=== PATIENT | female | born 1990 | race Caucasian/White ===

== ENCOUNTER 2017-02-26 05:21 | Inpatient (IN) | payer MEDICAID, OTHER ==
--- NOTE | 2017-02-19 11:59 | NUR ---
Social Pt. and mother came to to sign papers pre-delivery. Displayed openly hostile attitude upon arrival. During the signing of papers, pt. related numerous dislikes she has against doctors at [facility], and complaints about her past labors and deliveries at [facility]. These included: dislike of past delivering physician, c/o having to stay 5 days after 1st delivery because she was considered to have problems "bonding with my baby", being moved to a different room 3 different times during stay, given Lortab during labor, and then "my baby's screen came back showing Lortab in it", nurses coming into the room to "check my BP every 15 min just as an excuse to check on me and see how I was bonding with the baby", couldn't get any sleep for 5 days. When asked about who they wanted to follow up with for baby doctor, mother answered, "she doesn't like any of the doctors here; we will follow up elsewhere." Later when talking about a circumcision for baby, pt was told the circumcision would be done with her follow up doctor. Mother said, "well then we will lie and say we're following up with Tete." Pt. states, "I am not having the circumcision done at another doctor." Mother looked at daughter and said, "remember to lie about that when they ask you about your baby doctor."
[~2017-02-26] VITALS: Ht 160 cm; Wt 92.7 kg
[~2017-02-26 05:21] MED LIST: PREN1TAB53 PO
[2017-02-26] MEDS ORDERED: LIDOCAINE 1% (10mg/ml) 2ml SDV ID PRN (05:45)
[2017-02-26] MEDS ORDERED: MAG-AL + SIM LIQUID 30 ML UDC PO PRN ×2 (05:45→09:15)
[2017-02-26] MEDS ORDERED: ACETAMINOPHEN 500 MG TABLET PO PRN ×2 (05:45→09:15)
[2017-02-26] MEDS ORDERED: CALCIUM CARBONATE 500mg Chewable TAB PO PRN ×2 (05:45→09:15)
[2017-02-26] MEDS: LR 1,000 ML IV PRN ×2 (05:49→06:54)
--- NOTE | 2017-02-26 05:59 | ANESOB ---
Epidural/ Date/Time DATE: 02/26/17 TIME: 05:57 Preop Diagnosis Procedure: Labor Epidural Plan: Epidural Height: 5 ' 3.00 " Weight: kg BMI: kg/m2 NPO since: mn P:2 Heart Rate: 130 Medications & Allergies Inpatient Medications Current Medications Medications (Trade) Dose Ordered Sig/Kuldeep Start Time Stop Time Status Last Admin Dose Admin Lidocaine HCl 0.2 mg 0.2 mg PRN PRN 02/26/17 05:45 UNV Lactated Ringer's (Lactated Ringers) 1,000 ml @ 0 mls/hr Q0M PRN 02/26/17 05:32 UNV 02/26/17 05:49 500 MLS/HR Acetaminophen (Tylenol Extra Strength) 1-2 TABS = 500-1,000 MG Q4H PRN 02/26/17 05:45 UNV Al Hydroxide/Mg Hydroxide (Maalox) 30 ml Q4H PRN 02/26/17 05:45 UNV Calcium Carbonate (TUMS Regular Strength) 1-2 TABS Q2H PRN 02/26/17 05:45 UNV Vits W-Ca,Fe,Fa(<1MG) () 1 Tab Tablet, 1 TAB PO DAILY, ( Reported) Coded Allergies: Iodine (Verified Allergy, Severe, BLISTERING, 11/23/11) Penicillins (Verified Allergy, Unknown, 11/23/11) Medical/Surgical History Anesthesia PMH: Reports: *Hypertension, Asthma Smoking Status: Current every day smoker Does patient use chewing tobac: No Second Hand Exposure: No Substance Use Type: does not use Alcohol Intake: none Anesthesia Adverse Reactions: FOUND none Family Hx of Anesthesia Advers: none Hx of Motion Sickness: No Complications During : No Physical Exam Respiratory: Bilat breath sounds equal, Lungs clear Cardiovascular: Regular rate, rhythm Airway Assessment Mallampati Score: II TMD: 3 Fingerbreadths Neck Extension: Fair Overall Assessment: No Airway Concerns ASA: 2 Discussion Discussed risks/options/alternatives of anesthesia. Patient consents. Nursing pain assessment noted. Present for Discussion: Present: Family Member Attestation Statement Prior to the delivery of any anesthetic medication, I examined the patient, developed the plan, obtained the patient's consent and discussed the risk and benefits of the procedure with the patient/guardian. If the note happens to be signed after anesthesia start time, it is only due to providing efficient care of the patient and documenting at a time when the computer is available. LAURA HERNANDEZ IUSS MASTER ANALYST February 26, 2017 05:59
[2017-02-26 06:18] LABS: HGB - HEMOGLOBIN 10.3 GM/DL (12-16); MEAN CORPUSCULAR HGB 24.9 UUG (26-34); MEAN CORPUSCULAR HGB CONC(MCHC 31.2 GM/DL (31-37); MEAN CORPUSCULAR VOLUME 79.9 UM3 (80-100); MEAN PLATELET VOLUME 10.4 UM3 (9.4-12.4); RED BLOOD COUNT 4.13 M/MM3 (4.00-5.20); WBC - WHITE BLOOD COUNT 15.5 T/MM3 (4.5-11.0)
[2017-02-26] MEDS ORDERED: OXYTOCIN 30 UNIT in D5LR 500 ML PRN (06:45)
[2017-02-26] MEDS ORDERED: D5LR 1,000 ML IV PRN (06:45)
[2017-02-26 07:22] VITALS: BP 133/87; PULSE 92; RESP 18; TEMP 97.6; O2SAT 99
[2017-02-26] MEDS ORDERED: ONDANSETRON 4mg/2ml INJECTION IV PRN (07:30)
[2017-02-26] MEDS ORDERED: OXYTOCIN 30 UNIT in D5W 500 ML IV ONE (09:09)
[2017-02-26] MEDS ORDERED: OXYTOCIN 30 UNIT in D5LR 500 ML IV ONE (09:09)
[2017-02-26] MEDS ORDERED: HYDROCORTISONE 2.5% CREAM 30 GM RECTALLY PRN (09:15)
[2017-02-26] MEDS ORDERED: PHENYLEPHRINE RECTAL SUPPOSITORY RECTALLY PRN (09:15)
[2017-02-26] MEDS ORDERED: MILK OF MAGNESIA 30 ML SUSP PO PRN (09:15)
[2017-02-26] MEDS: IBUPROFEN 800 MG TABLET PO PRN ×2 (10:26→20:12)
[2017-02-26] MEDS: HYDROCODONE/APAP 5 mg/325 mg TABLET PO PRN ×3 (10:26→20:12)
[2017-02-26] MEDS: DiphenhydrAMINE 25 MG CAPSULE PO PRN ×2 (10:27→17:08)
[2017-02-26 13:15] VITALS: BP 123/81; PULSE 82; RESP 18; TEMP 97.6; O2SAT 97
--- NOTE | 2017-02-26 13:30 | NUR ---
Epidural Epidural catheter removed without complications, tip intact, no S/S of infection noted. Area cleansed with alcohol, betadine and covered with a bandaid. Pt. educated about S/S of infection and to call doctor with concerns.
--- NOTE | 2017-02-26 13:53 | LDNF ---
DATE: 02/26/2017 DIAGNOSES 1. 27-year-old white female, G3, P2 at 39.0 weeks gestational age. 2. Pitocin induction of labor for logistics. 3. Epidural anesthesia. 4. Artificial rupture of membranes. 5. Spontaneous vaginal delivery. 6. Male infant 3712 grams, (8 pounds 3 ounces), ([place]), 9/9 Apgars. 7. First-degree perineal laceration - repaired. This is a patient of mine that was scheduled today for logistics induction at 39.0 weeks gestational age. She came in earlier than scheduled kashmir and she changed from 3-5 cm. Pitocin was started but only went to 4 milliunits a minute. At 8 a.m. I ruptured membranes and we were 7 cm dilated. Epidural was already in place and a Pérez catheter was placed thereafter. She went to complete dilation and we had a spontaneous vaginal delivery 09:01 a.m. Infant was delivered on the first push from the OA position. Infant was bulb suctioned after delivery of the head and then again after delivery of the body. Cord was doubly clamped and cut and the infant's father cut the cord. Cord was allowed to drain for a minute and a half before clamping. was initially placed on mother's abdomen. Placenta came out spontaneously a minute after delivery. Perineum had a small first-degree laceration that was repaired with a single [id number] 3-0 chromic. EBL was 300 mL. Maternal blood type is O+, rubella is immune and GBS is negative. At the time of dictation, mother and infant are doing well. [facility]
--- NOTE | 2017-02-26 13:57 | NUR ---
SOCIAL Prior to delivery pt talked about same complaints as listed in prior note with this nurse. Dislike of previous delivering Dr, having to stay for 5 days because she wasn't bonding with her first child, and the nurses giving her Lortab in labor which then came back in her baby's cord stat. Immediately before delivery pt voiced just wanting to sleep "all these kids look like their dad anyway." Expressed she really wanted a girl and now she is stuck with 3 boys. Since delivery mother has been very appropriate, skin to skin after delivery. Breastfeed x1 with assistance and bottle fed baby 2x because of BS. Has been holding, cuddling with infant, talking to , and stroking infants face. Pt asked if she should go ahead and start pumping at this time despite having to give bottles for BS. Pump is set up for her now.
--- NOTE | 2017-02-26 15:00 | NUR ---
Care Assumed Report from Sayda Garcia RN. Care assumed.
--- NOTE | 2017-02-26 15:30 | NUR ---
Assessment Pt resting in bed. Assessment WNL. Rating pain 3/10 in lower back at epidural site. States the norco she was given about an hour ago has helped with pain. Warm rice bag placed at site. Small amount of bruising noted around the site. Fundus firm with small amount of lochia. Pt states she feels comfortable getting up on her own and doing her own cares. Voided once since removal of chapman. Discussed POC with pt and family. Verbalizes understanding. Denies needs at this time.
--- NOTE | 2017-02-26 18:53 | PNPDOC ---
Prog Note 02/26/17 doing well back sore where epidural was placed q&a-krb CLARISA CASH MD February 26, 2017 18:52
[2017-02-26 20:30] VITALS: BP 139/82; PULSE 101; RESP 16; TEMP 97.9
--- NOTE | 2017-02-27 01:05 | NUR ---
Shift Summary Pt has been up around room and walking halls several times this evening. She has also gone outside several times. Doing self and infant cares. Bleeding small to scant without clots. Pain has been well controlled with Yeso and Ibuprofen. Has been holding baby and appears to be bonding appropriately. Nursing and pumping. Stable and doing well.
--- NOTE | 2017-02-27 01:07 | NUR ---
Chart Check 24 hour chart check completed
[2017-02-27 06:30] VITALS: BP 141/91; PULSE 88; RESP 16; TEMP 97.9; O2SAT 99
[2017-02-27 06:34] LABS: HCT - HEMATOCRIT 28.6 % (36-46); HGB - HEMOGLOBIN 8.8 GM/DL (12-16); MEAN CORPUSCULAR HGB 25.1 UUG (26-34); MEAN CORPUSCULAR HGB CONC(MCHC 30.8 GM/DL (31-37); MEAN CORPUSCULAR VOLUME 81.7 UM3 (80-100); MEAN PLATELET VOLUME 10.4 UM3 (9.4-12.4); RED BLOOD COUNT 3.5 M/MM3 (4.00-5.20); WBC - WHITE BLOOD COUNT 14.2 T/MM3 (4.5-11.0)
[2017-02-27] MEDS: HYDROCODONE/APAP 5 mg/325 mg TABLET PO PRN ×3 (06:38→20:31)
[2017-02-27] MEDS: IBUPROFEN 800 MG TABLET PO PRN ×3 (06:38→22:22)
--- NOTE | 2017-02-27 08:26 | PNPDOC ---
Progress Note PPD1 Rubella: Immune GBS: Negative Blood Type:O pos Subjective 02/27/17 Lochia: Moderate Pain: Controlled Voiding: Voiding Nausea and Vomiting: No Nausea/Vomiting Objective VSS AF Vital Signs Date Time Temp Pulse Resp B/P Pulse Ox O2 Delivery O2 Flow Rate FiO2 02/27/17 06:30 97.9 88 16 141/91 99 Room Air General: Alert and Oriented Respiratory: Non-labored Abdomen: Fundus Firm Extremities: Non-tender Edema: None Assessment Plan Routine Care (Planning to go home tomorrow. Monitoring baby's blood sugar) YULIANA QUINTANILLA BOTTOM SAW OPERATOR February 27, 2017 08:26
[2017-02-27] MEDS: DOCUSATE CALCIUM 240 MG CAPSULE PO SCH (09:31)
[2017-02-27] MEDS: DiphenhydrAMINE 25 MG CAPSULE PO PRN (09:38)
--- NOTE | 2017-02-27 10:25 | NUR ---
CM THIS WORKER MET WITH PT. MATERNAL GRANDMOTHER PRESENT. THIS WORKER INTRODUCED SELF AND ROLE OF CASE MANAGEMENT. MOTHER REPORTED HAVING ALL THE NECESSARY ITEMS FOR BABY AT HOME. MOTHER EXPLAINED THAT SHE HAS TWO OTHER BOYS AND HAVE BEEN PREPARED FOR THIS BABY. MOTHER REPORTED HAVING [facility] AND PLANNING TO CONTINUE WITH [facility]. MOTHER REPORTED THAT SHE GOES TO THE [facility] OFFICE AND IS FAMILIAR WITH THE PROCESS AND STAFF THERE. MOTHER REPORTED FAMILY SUPPORT IF NEEDED. MATERNAL GRANDMOTHER REPORTED THAT SHE IS AVAILABLE TO HELP IF NEEDED. MOTHER HAS PRESCRIPTION FOR BREAST PUMP AND PLANNING TO HAVE MATERNAL GRANDMOTHER GO TO [place] TO PRACTICE CONSULTANT THE BREAST PUMP. FAMILY DENIED NEEDS AT THIS TIME. FATHER OF BABY CAME TO THE ROOM TOWARDS END OF THE VISIT. THIS WORKER PROVIDED CONTACT INFORMATION AND ENCOURAGED TO CONTACT WITH ANY QUESTIONS OR NEEDS.
--- NOTE | 2017-02-27 14:06 | NUR ---
social/activity Patient left unit with boyfriend and went to [facility] [place] around 1300. Grandmother remains in the room. Baby was in nursery at the time mother left. She has been gone over an hour at this time. RN went to room and spoke with grandmother who called patient. Patient stated that she was on her way back. RN notified them that she cannot leave the hospital until she has been discharged.
--- NOTE | 2017-02-27 14:12 | NUR ---
social/activity Patient has returned to her room at 1412.
[2017-02-27 14:30] VITALS: BP 136/92; PULSE 96; RESP 18; TEMP 98.3; O2SAT 99
[2017-02-27 17:07] VITALS: BP 133/87; PULSE 80; RESP 18; TEMP 98.1
[2017-02-27 21:40] VITALS: BP 137/79; PULSE 95; RESP 16; TEMP 97.5
--- NOTE | 2017-02-27 23:00 | NUR ---
LEFT LEG CRAMP: Pt informs RN that she has had a "kristina horse" in the middle of her left calf since delivery on 02/26/17. RN assesses both legs and measures circumference of calves, both measure 17.375 inches. 2+pitting edema noted in lower legs bilaterally. Left leg w/o erythema or any other symptoms. Pt recently ambulated to ER entrance to smoker, no complications with ambulation. Earlier in shift pt was ambulating in unit hallway w/o complications and did not mention leg cramp to RN. RN calls and updates Dr Tripathi on pt's symptom. Dr Tripathi orders a morning sono of affected area.
--- NOTE | 2017-02-28 02:35 | NUR ---
SHIFT SUMMARY: VSS, pt's pain controlled with PO Motrin and [place] 5. Fundus firm at 1 below umbilicus, light lochia noted. See note regarding Left Leg Cramp. Pt has been off unit multiple times this shift and has ambulated in unit hallway. Voiding and performing own personal cares. Tolerating general diet. w/o RN assistance and bottle feeding baby. Caring and bonding with baby appropriately. Jesse was present earlier in shift. Pt's mother staying the evening with pt.
--- NOTE | 2017-02-28 02:35 | NUR ---
Chart Check 24 hour chart check completed
[2017-02-28] MEDS: HYDROCODONE/APAP 5 mg/325 mg TABLET PO PRN ×2 (04:00→11:26)
--- NOTE | 2017-02-28 04:21 | NUR ---
LEFT LEG CRAMP PT DID NOT MENTION PAIN IN LEFT LEG. NURSE ASKED IF PAIN WAS STILL PRESENT, PT STATES IT IS MORE OF A DULL PAIN WHILE IN BED. "EVY HORSE" WHEN UP AMBULATING. NURSE WAS PRESENT IN ROOM WHEN PATIENT UP TO BATHROOM AND NO COMPLAINS. +2 EDEMA STILL NOTED ON BILATERAL LOWER EXTREMITIES. LEFT LEG W/O ERYTHEMA OR OTHER SX. VERBALIZED TO PATIENT SONO SCHEDULED FOR 0800 THIS MORNING FOR LEFT LEG.
[2017-02-28 05:42] VITALS: BP 127/83; PULSE 91; RESP 16; TEMP 98.4
[2017-02-28] MEDS: DiphenhydrAMINE 25 MG CAPSULE PO PRN (07:41)
[2017-02-28] MEDS: IBUPROFEN 800 MG TABLET PO PRN (07:42)
[2017-02-28] MEDS ORDERED: HYDR-4246 PO (08:41)
[2017-02-28] MEDS ORDERED: IBUP-1547 PO (08:41)
--- NOTE | 2017-02-28 08:42 | PNPDOC ---
Prog Note 02/28/17 no c/o vss af scan pending on leg for dvt but I doubt dc inst q&a-krb CLARISA CASH MD February 28, 2017 08:39
--- NOTE | 2017-02-28 08:59 | DI ---
Indication: ITS.REASON: c/o of lower left calf pain PROCEDURE: US VENOUS DUPLEX, LOWER EXT LT: Encounter: Initial Comparison: None Technique: Color Doppler duplex and grayscale sonographic imaging of the left lower extremity was performed. Findings: There is no evidence for acute deep venous thrombosis in the left thigh. Specifically, serial graded compression was performed from the inguinal ligament to the popliteal bifurcation, on the left thigh, demonstrating appropriate compressibility of the deep venous system. In addition, color and pulsed Doppler demonstrate appropriate spontaneous flow, variation with respiration, and augmentation with calf compression. At the ankle, normal flow is identified in the posterior tibial veins; these vessels are also normal in caliber. Impression: No evidence of acute DVT in the left lower limb. .
[2017-02-28] MEDS: DOCUSATE CALCIUM 240 MG CAPSULE PO SCH (09:38)
== END 2017-02-28 12:03 | disposition home or self-care (01) | DRG 775 ==
LOC: MC 05:21
PROVIDERS: ADMIT Obstetrics & Gynecology; ATTEND Obstetrics & Gynecology
PROC: 10E0XZZ Delivery of Products of Conception, External Approach (ICD-10-PCS; principal; 2017-02-26)
PROC: 3E033VJ Introduction of Other Hormone into Peripheral Vein, Percutaneous Approach (ICD-10-PCS; 2017-02-26)
PROC: 10907ZC Drainage of Amniotic Fluid, Therapeutic from Products of Conception, Via Natural or Artificial Opening (ICD-10-PCS; 2017-02-26)
PROC: 0HQ9XZZ Repair Perineum Skin, External Approach (ICD-10-PCS; 2017-02-26)
DX: O26.893 Other specified pregnancy related conditions, third trimester (principal); O70.0 First degree perineal laceration during delivery; O09.213 Supervision of pregnancy with history of pre-term labor, third trimester; O99.334 Smoking (tobacco) complicating childbirth; F17.210 Nicotine dependence, cigarettes, uncomplicated; Z3A.39 39 weeks gestation of pregnancy; Z37.0 Single live birth
CPT/HCPCS: 36415; 85027